=== PATIENT | female | born 1955 | race Caucasian/White ===

== ENCOUNTER 2023-03-07 10:15 | Inpatient (IN) | payer MEDICARE, MEDICAID ==
[~2023-03-07] VITALS: Ht 152.4 cm; Wt 66.2 kg
[2023-03-07] MEDS ORDERED: PIPERACILLIN/TAZ 3.375G PREMIX 50 ML IV ONE (11:00)
[2023-03-07 11:37] LABS: HEMATOCRIT. 36.7 % (36.0-48.0); HEMOGLOBIN. 11.5 g/dL (12.0-16.0); MEAN CORPUSCULAR HEMOGLOBIN 27.1 pg (28.0-32.0); MEAN CORPUSCULAR HGB CONC 31.4 g/dL (31.0-37.0); MEAN CORPUSCULAR VOLUME 86.4 fL (81.0-99.0); MEAN PLATELET VOLUME 8.8 fl (7.4-10.4); PLATELET 284 x1000/uL (130-400); RED BLOOD CELL COUNT 4.24 mill/uL (4.2-5.4); RED CELL DISTRIBUTION WIDTH 15.5 % (11.6-14.6); WHITE BLOOD COUNT 13.5 x1000/uL (4.5-11.0)
[2023-03-07 11:54] LABS: DIFFERENTIAL COMMENT 1; PROTHROMBIN TIME 11.1 sec (9.6-11.0)
[2023-03-07 12:36] LABS: PLATELET ESTIMATE NORMAL
[2023-03-07] MEDS ORDERED: PIPERACILLIN/TAZ 3.375G PREMIX 50 ML IV NR (13:45)
[2023-03-07 15:14] LABS: ALANINE AMINOTRANSFERASE 20 IU/L (13-61); ALBUMIN 2.5 g/dL (3.4-5.0); ASPARTATE AMINOTRANSFERASE 22 IU/L (15-37); BILIRUBIN TOTAL 0.3 mg/dL (0.1-1.0); CALCIUM 9.1 mg/dL (8.5-10.1); CARBON DIOXIDE 22 mEq/L (21-32); CHLORIDE 101 mEq/L (98-107); CREATININE 1.1 mg/dL (0.6-1.3); GLUCOSE 161 mg/dL (70-105); INDEX HEMOLYSI 1 (1-3); INDEX ICTERIC 1 (1-4); INDEX LIPEMIC 1 (1-3); POTASSIUM 4.2 mEq/L (3.5-5.1); PROTEIN TOTAL 7.7 g/dL (6.0-8.3); SODIUM 132 mEq/L (136-145); TROPONIN I HIGH SENSITIVITY 14 ng/L (<54); UREA NITROGEN BLOOD 39 mg/dL (7-21)
[2023-03-07 16:39] LABS: CLARITY URINE CLEAR (CLEAR); COLOR URINE YELLOW (YELLOW); GLUCOSE URINE TRACE (NEGATIVE); KETONES URINE NEGATIVE (NEGATIVE); LEUKOCYTE ESTERASE URINE 2+ (NEGATIVE); NITRITE URINE NEGATIVE (NEGATIVE); OCCULT BLOOD URINE NEGATIVE (NEGATIVE); PROTEIN URINE 1+ (NEGATIVE); SPECIFIC GRAVITY URINE 1.021 (1.005-1.030); UROBILINOGEN URINE 0.2 E.U./dL (0.2-1.0)
[2023-03-07 17:09] LABS: BACTERIA URINE 2+; RBC URINE 0-2 /hpf (0-2); SQUAMOUS EPITHELIAL CELL URINE RARE /lpf (RARE/1+); WBC URINE 25-50 /hpf (0-2)
[2023-03-07] MEDS ORDERED: VALPROATE SODIUM 1,000 MG in SODIUM CHLORIDE 0.9% 100 ML IV NR (17:30)
[2023-03-07 21:45] VITALS: BP 137/49; PULSE 78; RESP 19; TEMP 97.2
[2023-03-07] MEDS ORDERED: CLONIDINE 0.1MG TABLET PO PRN (23:00)
[2023-03-07] MEDS ORDERED: PIPERACILLIN/TAZ 3.375G PREMIX 50 ML IV SCH (23:00)
[2023-03-07] MEDS ORDERED: VANCOMYCIN 1G PREMIX 200 ML IV NR ×2 (23:00→23:15)
[2023-03-07] MEDS ORDERED: ONDANSETRON HCL 4MG/2ML INJ IV PRN (23:00)
[2023-03-07] MEDS: DEXT 5%/0.45% NACL 1000ML 1,000 ML IV SCH (23:36)
[2023-03-07] MEDS: PIPERACILLIN/TAZOBACTAM 3.375G in DEXT 5% WATER 50ML IV SCH (23:36)
[2023-03-08] VITALS: BP 106/44; PULSE 72; RESP 19; TEMP 97.2
[2023-03-08 04:00] VITALS: BP 126/51; PULSE 69; RESP 17; TEMP 96.6
[2023-03-08] MEDS: PIPERACILLIN/TAZOBACTAM 3.375G in DEXT 5% WATER 50ML IV SCH ×3 (05:38→21:15)
[2023-03-08] MEDS ORDERED: DEXTROSE 50% WATER 50ML SYRINGE IV PRN ×2 (06:15→17:30)
[2023-03-08 06:34] LABS: BASOPHILS % 0.2 % (0.0-2.0); EOSINOPHILS % 0.2 % (0.0-5.0); HEMATOCRIT. 34.1 % (36.0-48.0); HEMOGLOBIN. 11.1 g/dL (12.0-16.0); LYMPHOCYTES % 8.1 % (20.0-50.0); MEAN CORPUSCULAR HEMOGLOBIN 27.5 pg (28.0-32.0); MEAN CORPUSCULAR HGB CONC 32.5 g/dL (31.0-37.0); MEAN CORPUSCULAR VOLUME 84.5 fL (81.0-99.0); MEAN PLATELET VOLUME 9.1 fl (7.4-10.4); MONOCYTES % 6.3 % (2.0-8.0); NEUTROPHILS % 85.2 % (40.0-76.0); PLATELET 289 x1000/uL (130-400); RED BLOOD CELL COUNT 4.04 mill/uL (4.2-5.4); RED CELL DISTRIBUTION WIDTH 15.8 % (11.6-14.6)
[2023-03-08] MEDS: BLOOD SUGAR DIAGNOSTIC STRIP TEST SCH ×5 (06:44→21:16)
[2023-03-08 07:15] LABS: CALCIUM 8.3 mg/dL (8.5-10.1); CREATININE 1.1 mg/dL (0.6-1.3); POTASSIUM 4.6 mEq/L (3.5-5.1)
[2023-03-08 08:00] VITALS: BP 101/28; PULSE 66; RESP 18; TEMP 96.6
[2023-03-08] MEDS ORDERED: LIDOCAINE HCL 1% 20ML VIAL (Pyxis) INJ ONE ×2 (09:09→09:11)
[2023-03-08] MEDS ORDERED: BUPIVACAINE HCL/PF 0.5% (5MG/ML) 10ML ONE (09:11)
[2023-03-08] MEDS ORDERED: VANCOMYCIN HCL 1 GM/VIAL ONE (09:11)
[2023-03-08] MEDS: INSULIN LISPRO 100 UNITS/ML SUBCUT SCH ×4 (09:19→21:00)
[2023-03-08] MEDS ORDERED: MIDAZOLAM HCL 2 MG/2 ML VIAL ONE (10:50)
[2023-03-08] MEDS ORDERED: FENTANYL CITRATE/PF 50MCG/ML 2ML VIAL ONE (10:50)
[2023-03-08] MEDS ORDERED: PROPOFOL 200MG/20ML VIAL IV ONE (10:50)
[2023-03-08] MEDS ORDERED: PHENYLEPHRINE HCL 10 MG/ML 1ML (IV VIAL) IV ONE ×3 (11:21→12:45)
[2023-03-08] MEDS ORDERED: HYDROMORPHONE HCL/PF 2MG/ML CPJ IV PRN (11:30)
[2023-03-08] MEDS ORDERED: ONDANSETRON HCL 4MG/2ML INJ IV PRN (11:30)
[2023-03-08] MEDS ORDERED: LABETALOL 5MG/ML SYR 20 MG/4 ML SYRINGE IV PRN (11:30)
[2023-03-08] MEDS ORDERED: MEPERIDINE HCL/PF 25MG/ML CPJ IV PRN (11:30)
[2023-03-08] MEDS: DEXT 5%/0.45% NACL 1000ML 1,000 ML IV SCH (12:20)
[2023-03-08] MEDS: SODIUM CHLORIDE 0.9% 1,000 ML IV SCH (15:04)
[2023-03-08] MEDS ORDERED: TACR0.5C4 PO (15:05)
[2023-03-08] MEDS ORDERED: PRED5TAB PO (15:05)
[2023-03-08] MEDS ORDERED: ASPI-1406 PO (15:05)
[2023-03-08] MEDS ORDERED: MYCO250C PO ×2 (15:05→15:16)
[2023-03-08] MEDS ORDERED: SERT-112 PO (15:05)
[2023-03-08] MEDS ORDERED: RISP1TAB97 PO ×3 (15:05→15:20)
[2023-03-08] MEDS ORDERED: ERGO1250 PO (15:16)
[2023-03-08] MEDS ORDERED: ALEN70TA79 PO (15:17)
[2023-03-08] MEDS ORDERED: RIVA2.5T PO (15:17)
[2023-03-08] MEDS ORDERED: PRAV80TA21 PO (15:18)
[2023-03-08] MEDS ORDERED: FINE10TA PO (15:18)
[2023-03-08] MEDS ORDERED: INSASP SUBCUT (15:21)
[2023-03-08] MEDS ORDERED: HYDR-4001 PO (15:22)
[2023-03-08 16:00] VITALS: BP 107/38; PULSE 79; RESP 18; TEMP 97.8
[2023-03-08] MEDS: TACROLIMUS 0.5 MG CAPSULE PO SCH (17:54)
[2023-03-08] MEDS: VANCOMYCIN 750MG PREMIX 150 ML IV SCH (17:54)
[2023-03-08] MEDS: MYCOPHENOLATE MOFETIL 250MG CAPSULE PO SCH (17:54)
[2023-03-08] MEDS: PREDNISONE 5MG TABLET PO SCH (17:55)
[2023-03-08] MEDS: INSULIN GLARGINE 100 UNITS/ML SUBCUT SCH (17:57)
[2023-03-08 20:00] VITALS: BP 120/49; PULSE 88; RESP 18; TEMP 96.7
[2023-03-08] MEDS: ACETAMINOPHEN 325MG TABLET PO PRN (21:40)
[2023-03-08] MEDS ORDERED: SODIUM CHLORIDE 0.9% 1,000 ML IV SCH (22:00)
[2023-03-08] MEDS ORDERED: INSULIN LISPRO 100 UNITS/ML SUBCUT NR (22:00)
[2023-03-08] MEDS: HYDROCODONE/ACETAMINOPHEN 5/325MG TABLET PO PRN (23:04)
[2023-03-09] VITALS: BP 126/48; PULSE 83; RESP 19; TEMP 97.6
[2023-03-09 04:00] VITALS: BP 141/53; PULSE 80; RESP 20; TEMP 96.6
[2023-03-09] MEDS: PIPERACILLIN/TAZOBACTAM 3.375G in DEXT 5% WATER 50ML IV SCH ×3 (06:00→21:17)
[2023-03-09 06:43] LABS: DIFFERENTIAL COMMENT 1; HEMATOCRIT. 30.5 % (36.0-48.0); HEMOGLOBIN. 9.8 g/dL (12.0-16.0); MEAN CORPUSCULAR HEMOGLOBIN 26.9 pg (28.0-32.0); MEAN CORPUSCULAR VOLUME 84.1 fL (81.0-99.0); MEAN PLATELET VOLUME 8.8 fl (7.4-10.4); PLATELET 312 x1000/uL (130-400); RED BLOOD CELL COUNT 3.62 mill/uL (4.2-5.4); RED CELL DISTRIBUTION WIDTH 15.8 % (11.6-14.6); WHITE BLOOD COUNT 15.7 x1000/uL (4.5-11.0)
[2023-03-09 07:22] LABS: POTASSIUM 4.5 mEq/L (3.5-5.1)
[2023-03-09 07:36] LABS: CALCIUM 8.5 mg/dL (8.5-10.1)
[2023-03-09] MEDS: BLOOD SUGAR DIAGNOSTIC STRIP TEST SCH ×4 (07:40→21:22)
[2023-03-09 08:00] VITALS: BP 124/67; PULSE 79; RESP 18; TEMP 97.1
[2023-03-09] MEDS ORDERED: HYDROCODONE/ACETAMINOPHEN 5/325MG TABLET PO NR (09:30)
[2023-03-09] MEDS: PREDNISONE 5MG TABLET PO SCH (10:16)
[2023-03-09] MEDS: MYCOPHENOLATE MOFETIL 250MG CAPSULE PO SCH ×2 (10:16→17:22)
[2023-03-09] MEDS: TACROLIMUS 0.5 MG CAPSULE PO SCH ×2 (10:16→17:22)
[2023-03-09] MEDS: RISPERIDONE 1MG TABLET PO SCH (10:17)
[2023-03-09] MEDS: SERTRALINE HCL 50MG TABLET PO SCH (10:17)
[2023-03-09] MEDS: ASPIRIN 81MG EC TABLET PO SCH (10:17)
[2023-03-09] MEDS: INSULIN GLARGINE 100 UNITS/ML SUBCUT SCH (10:22)
[2023-03-09] MEDS: INSULIN LISPRO 100 UNITS/ML SUBCUT SCH ×4 (10:24→21:21)
[2023-03-09] MEDS: SODIUM CHLORIDE 0.9% 1,000 ML IV SCH ×2 (10:26→17:06)
[2023-03-09 12:00] VITALS: BP 125/73; PULSE 79; RESP 18; TEMP 97
[2023-03-09] MEDS: VANCOMYCIN 750MG PREMIX 150 ML IV SCH (12:22)
[2023-03-09 15:55] LABS: ANISOCYTOSIS 1+; PLATELET ESTIMATE NORMAL
[2023-03-09 16:00] VITALS: BP 118/56; PULSE 78; RESP 18; TEMP 97.2
[2023-03-09] MEDS ORDERED: NALOXONE HCL 0.4MG/ML VIAL IV PRN (16:45)
[2023-03-09 20:00] VITALS: BP 138/49; PULSE 81; RESP 17; TEMP 96.6
[2023-03-09] MEDS: ACETAMINOPHEN 325MG TABLET PO PRN (21:18)
[2023-03-10] VITALS: BP 138/52; PULSE 76; RESP 17; TEMP 97.1
[2023-03-10 04:00] VITALS: BP 152/70; PULSE 89; RESP 18; TEMP 97.7
[2023-03-10] MEDS: SODIUM CHLORIDE 0.9% 1,000 ML IV SCH ×2 (05:49→21:26)
[2023-03-10] MEDS: INSULIN LISPRO 100 UNITS/ML SUBCUT SCH ×4 (05:49→21:26)
[2023-03-10] MEDS: BLOOD SUGAR DIAGNOSTIC STRIP TEST SCH ×4 (05:49→21:28)
[2023-03-10] MEDS: PIPERACILLIN/TAZOBACTAM 3.375G in DEXT 5% WATER 50ML IV SCH ×3 (05:49→21:28)
[2023-03-10 06:58] LABS: HEMATOCRIT. 30.9 % (36.0-48.0); MEAN CORPUSCULAR HEMOGLOBIN 27.1 pg (28.0-32.0); MEAN CORPUSCULAR HGB CONC 32.2 g/dL (31.0-37.0); MEAN CORPUSCULAR VOLUME 84.3 fL (81.0-99.0); MEAN PLATELET VOLUME 8.7 fl (7.4-10.4); PLATELET 348 x1000/uL (130-400); RED BLOOD CELL COUNT 3.67 mill/uL (4.2-5.4); RED CELL DISTRIBUTION WIDTH 16.3 % (11.6-14.6); WHITE BLOOD COUNT 14.4 x1000/uL (4.5-11.0)
[2023-03-10 07:04] LABS: DIFFERENTIAL COMMENT 1
[2023-03-10 07:16] LABS: CHLORIDE 108 mEq/L (98-107); INDEX HEMOLYSI 1 (1-3); INDEX ICTERIC 1 (1-4); INDEX LIPEMIC 1 (1-3); POTASSIUM 4.2 mEq/L (3.5-5.1); SODIUM 138 mEq/L (136-145)
[2023-03-10 07:30] LABS: CALCIUM 8.5 mg/dL (8.5-10.1); CARBON DIOXIDE 18 mEq/L (21-32); CREATININE 0.7 mg/dL (0.6-1.3); GLUCOSE 125 mg/dL (70-105); UREA NITROGEN BLOOD 21 mg/dL (7-21)
[2023-03-10 08:08] VITALS: BP 136/68; PULSE 89; RESP 18; TEMP 98.1
[2023-03-10] MEDS ORDERED: VANCOMYCIN 750MG PREMIX 150 ML IV SCH (09:00)
[2023-03-10] MEDS: MYCOPHENOLATE MOFETIL 250MG CAPSULE PO SCH ×2 (09:06→17:33)
[2023-03-10] MEDS: RISPERIDONE 1MG TABLET PO SCH (09:06)
[2023-03-10] MEDS: ASPIRIN 81MG EC TABLET PO SCH (09:06)
[2023-03-10] MEDS: TACROLIMUS 0.5 MG CAPSULE PO SCH ×2 (09:06→17:33)
[2023-03-10] MEDS: SERTRALINE HCL 50MG TABLET PO SCH (09:07)
[2023-03-10] MEDS: PREDNISONE 5MG TABLET PO SCH (09:07)
[2023-03-10] MEDS: INSULIN GLARGINE 100 UNITS/ML SUBCUT SCH (10:20)
[2023-03-10 11:54] VITALS: BP 157/44; PULSE 91; RESP 20; TEMP 98.9
[2023-03-10 15:03] LABS: ANISOCYTOSIS 1+; PLATELET ESTIMATE NORMAL
[2023-03-10 16:00] VITALS: BP 131/50; PULSE 84; RESP 20; TEMP 97.6
[2023-03-10] MEDS: HYDROCODONE/ACETAMINOPHEN 5/325MG TABLET PO PRN (17:34)
[2023-03-10 20:03] VITALS: BP 144/51; PULSE 79; RESP 20; TEMP 97
[2023-03-11 04:10] VITALS: BP 123/42; PULSE 77; RESP 20; TEMP 97.2
[2023-03-11] MEDS: PIPERACILLIN/TAZOBACTAM 3.375G in DEXT 5% WATER 50ML IV SCH ×2 (05:03→13:57)
[2023-03-11] MEDS: HYDROCODONE/ACETAMINOPHEN 5/325MG TABLET PO PRN (05:03)
[2023-03-11 05:28] VITALS: BP 155/61; PULSE 83; RESP 20; TEMP 97.2
[2023-03-11] MEDS: BLOOD SUGAR DIAGNOSTIC STRIP TEST SCH ×2 (07:35→12:44)
[2023-03-11 07:36] LABS: HEMATOCRIT. 28.4 % (36.0-48.0); HEMOGLOBIN. 9.3 g/dL (12.0-16.0); MEAN CORPUSCULAR HEMOGLOBIN 27.8 pg (28.0-32.0); MEAN CORPUSCULAR HGB CONC 32.6 g/dL (31.0-37.0); MEAN CORPUSCULAR VOLUME 85.1 fL (81.0-99.0); MEAN PLATELET VOLUME 8.5 fl (7.4-10.4); PLATELET 341 x1000/uL (130-400); RED BLOOD CELL COUNT 3.34 mill/uL (4.2-5.4); RED CELL DISTRIBUTION WIDTH 16.3 % (11.6-14.6); WHITE BLOOD COUNT 8.9 x1000/uL (4.5-11.0)
[2023-03-11 07:42] LABS: DIFFERENTIAL COMMENT 1
[2023-03-11 08:00] VITALS: BP 132/63; PULSE 70; RESP 20; TEMP 97.9
[2023-03-11] MEDS: SERTRALINE HCL 50MG TABLET PO SCH (08:45)
[2023-03-11] MEDS: TACROLIMUS 0.5 MG CAPSULE PO SCH (08:45)
[2023-03-11] MEDS: RISPERIDONE 1MG TABLET PO SCH (08:45)
[2023-03-11] MEDS: ASPIRIN 81MG EC TABLET PO SCH (08:45)
[2023-03-11] MEDS: PREDNISONE 5MG TABLET PO SCH (08:45)
[2023-03-11] MEDS: MYCOPHENOLATE MOFETIL 250MG CAPSULE PO SCH (08:45)
[2023-03-11] MEDS ORDERED: VANCOMYCIN 750MG PREMIX 150 ML IV SCH (09:00)
[2023-03-11] MEDS: INSULIN LISPRO 100 UNITS/ML SUBCUT SCH ×2 (09:01→12:47)
[2023-03-11] MEDS: SODIUM CHLORIDE 0.9% 1,000 ML IV SCH (09:42)
[2023-03-11] MEDS: INSULIN GLARGINE 100 UNITS/ML SUBCUT SCH (10:03)
[2023-03-11 12:12] VITALS: BP 108/69; PULSE 76; RESP 18; TEMP 97.7
[2023-03-11] MEDS ORDERED: HYDR-4001 PO (14:07)
[2023-03-11] MEDS ORDERED: AMOX1TAB16 MT (14:07)
[2023-03-11] MEDS ORDERED: SULF1TAB48 MT (14:07)
[2023-03-11 14:14] LABS: ANISOCYTOSIS 1+; PLATELET ESTIMATE NORMAL
[2023-03-11 14:57] VITALS: BP 108/69; PULSE 76; TEMP 97.7; O2SAT 98
== END 2023-03-11 18:15 | disposition home or self-care (01) | DRG 853 ==
LOC: ER 10:15 → 7WST 13:55 → EDBEDREQSVC 14:07 → EDBEDREQTM 14:07 → EDBEDREQ 14:07 → UNDODISIN 03-11 15:55
PROVIDERS: ADMIT Internal Medicine; ATTEND Internal Medicine
PROC: 0Y6M0Z9 Detachment at Right Foot, Partial 1st Ray, Open Approach (ICD-10-PCS; principal; 2023-03-08)
PROC: 0Y6M0ZB Detachment at Right Foot, Partial 2nd Ray, Open Approach (ICD-10-PCS; 2023-03-08)
PROC: 0Y6M0ZC Detachment at Right Foot, Partial 3rd Ray, Open Approach (ICD-10-PCS; 2023-03-08)
PROC: 0Y6M0ZD Detachment at Right Foot, Partial 4th Ray, Open Approach (ICD-10-PCS; 2023-03-08)
PROC: 0Y6M0ZF Detachment at Right Foot, Partial 5th Ray, Open Approach (ICD-10-PCS; 2023-03-08)
DX: A41.9 Sepsis, unspecified organism (principal); G93.41 Metabolic encephalopathy; E11.52 Type 2 diabetes mellitus with diabetic peripheral angiopathy with gangrene; L03.115 Cellulitis of right lower limb; E87.1 Hypo-osmolality and hyponatremia; N39.0 Urinary tract infection, site not specified; Z94.0 Kidney transplant status; H54.7 Unspecified visual loss; E11.319 Type 2 diabetes mellitus with unspecified diabetic retinopathy without macular edema; E11.65 Type 2 diabetes mellitus with hyperglycemia; I10 Essential (primary) hypertension; I25.10 Atherosclerotic heart disease of native coronary artery without angina pectoris; Z79.4 Long term (current) use of insulin; Z89.431 Acquired absence of right foot; Z91.81 History of falling
CPT/HCPCS: 36415; 80048; 80053; 80202; 81003; 82962; 83036; 83605; 83735; 84145; 84484; 85025; 85651; 87070; 87075; 87077; 87186; 88304; 88311; 93005; 93306; 99291; C1893; J1815; J2250; J2370; J2543; J2704; J3010; J3370; J3490; J7030; J7050; J7060; J7507; J7512; J7517